=== PATIENT | female | born 1990 | race Caucasian/White ===

== ENCOUNTER 2022-04-13 23:10 | Inpatient (IN) | payer MEDICAID, OTHER ==
[~2022-04-13] VITALS: Ht 154.9 cm; Wt 83.6 kg
[~2022-04-13 23:10] MED LIST: FOLI1TAB15 PO; LEVE750T4 PO
[2022-04-13] MEDS ORDERED: DIVA125T2 PO (23:51)
[2022-04-13] MEDS ORDERED: ESCI-8 PO (23:51)
[2022-04-14 00:09] LABS: BASOPHILS % (AUTO) 0.3 % (0.0-2.0); EOSINOPHILS % (AUTO) 1.3 % (1.0-6.0); HEMATOCRIT 40.1 % (36-46); HEMOGLOBIN 13.5 g/dL (12.0-16.0); LYMPHOCYTES # (AUTO) 1.5 K/uL (1.0-4.8); LYMPHOCYTES % (AUTO) 11.5 % (22.0-44.0); MEAN CORPUSCULAR HEMOGLOBIN 29.8 pg (26.0-34.0); MEAN CORPUSCULAR HGB CONC 33.6 G/dL (31.0-37.0); MEAN CORPUSCULAR VOLUME 89 fL (80-100); MONOCYTES # (AUTO) 0.6 K/uL (0.1-1.0); MONOCYTES % (AUTO) 4.8 % (2.0-9.0); NEUTROPHILS # (AUTO) 10.4 K/uL (1.8-7.7); NEUTROPHILS % (AUTO) 82.1 % (40.0-70.0); PLATELET COUNT (AUTO) 412 K/uL (150-450); RED BLOOD CELL COUNT(AUTO) 4.53 MIL/uL (4.00-5.20)
[2022-04-14 00:33] LABS: ANION GAP 11 mmol/L (8-16); CALCIUM, TOTAL 9.5 mg/dL (8.8-10.5); CARBON DIOXIDE 27 mmol/L (22-29); CHLORIDE 103 mmol/L (98-107); CREATININE 0.68 mg/dL (0.60-1.30); GLUCOSE,RANDOM 116 mg/dL (70-110); SODIUM SERUM 141 mmol/L (136-145); UREA NITROGEN, BLOOD 10 mg/dL (7-18)
[2022-04-14 00:35] LABS: GLOMERULAR FILTR. RATE CALC > 60 mL/min (>60)
[2022-04-14 00:39] LABS: AMPHET/METH SCREEN,URINE NEGATIVE (NEGATIVE); BARBITURATE SCREEN, URINE NEGATIVE (NEGATIVE); BENZODIAZEPINES SCREEN,URINE NEGATIVE (NEGATIVE); CANNABINOID SCREEN,URINE POSITIVE (NEGATIVE); COCAINE SCREEN,URINE NEGATIVE (NEGATIVE); METHADONE SCREEN, URINE NEGATIVE (NEGATIVE); OPIATE SCREEN,URINE NEGATIVE (NEGATIVE)
[2022-04-14 00:40] LABS: PHENCYCLIDINE SCREEN,URINE NEGATIVE (NEGATIVE)
[2022-04-14 00:40] LABS: ALANINE AMINOTRANSFERASE 55 U/L (12-78); ALBUMIN 3.7 g/dL (3.4-5.0); ALKALINE PHOSPHATASE 106 U/L (46-116); ASPARTATE AMINOTRANSFERASE 33 U/L (15-37); BILIRUBIN,TOTAL 0.2 mg/dL (0.1-1.0); TOTAL PROTEIN, SERUM 8.1 g/dL (6.4-8.2)
[2022-04-14 02:31] LABS: COVID AG,FIA SOURCE NASAL SWAB
[2022-04-14 02:42] LABS: VALPROIC ACID < 3 mcg/mL (50-100)
[2022-04-14] MEDS ORDERED: HALOPERIDOL 5 MG TABLET PO PRN (03:00)
[2022-04-14] MEDS ORDERED: LORazepam 2 MG TABLET PO PRN (03:00)
[2022-04-14] MEDS ORDERED: ZOLPIDEM TARTRATE 10 MG TABLET PO PRN (03:00)
[2022-04-14 04:14] VITALS: BP 125/67
[2022-04-14 04:22] VITALS: BP 125/67
[2022-04-14] MEDS ORDERED: ALBUTEROL SULFATE HFA 90 MCG/PUFF 8 GM INHALER IH PRN (06:15)
[2022-04-14] MEDS ORDERED: CloNIDine HCL 0.1 MG TABLET PO PRN (06:15)
[2022-04-14] MEDS ORDERED: LOPERAMIDE HCL 2 MG CAPSULE PO PRN (06:15)
[2022-04-14] MEDS ORDERED: MAGNESIUM HYDROXIDE SUSPENSION 30 ML UDCUP PO PRN (06:15)
[2022-04-14] MEDS ORDERED: ONDANSETRON HCL 4 MG TABLET PO PRN (06:15)
[2022-04-14] MEDS ORDERED: PETROLATUM,WHITE 28 GM JELLY TP PRN (06:15)
[2022-04-14] MEDS ORDERED: ACETAMINOPHEN 325 MG TABLET PO PRN (06:15)
[2022-04-14] MEDS ORDERED: NICOTINE 14 MG/24 HOUR PATCH TD PRN (06:15)
[2022-04-14] MEDS ORDERED: GuaiFENesin/D-METHORPHAN [SUGAR-FREE] 200-20MG/10 ML SYRUP UDCUP PO PRN (06:15)
[2022-04-14] MEDS ORDERED: DOCUSATE SODIUM 100 MG CAPSULE PO PRN (06:15)
[2022-04-14] MEDS ORDERED: MAG HYDROX/AL HYDROX/SIMETH ES 30 ML SUSPENSION UDCUP PO PRN (06:15)
[2022-04-14] MEDS: LevETIRAcetam 250 MG TABLET PO SCH ×2 (08:17→16:06)
[2022-04-14 10:15] VITALS: BP 112/65
[2022-04-14] MEDS: ESCITALOPRAM OXALATE 10 MG TABLET PO SCH (13:19)
[2022-04-14] MEDS: DIVALPROEX SODIUM 500 MG DR TABLET PO SCH (16:06)
[2022-04-14 16:21] VITALS: BP 109/63
[2022-04-14] MEDS: IBUPROFEN 400 MG TABLET PO PRN (20:59)
[2022-04-15] MEDS: ESCITALOPRAM OXALATE 10 MG TABLET PO SCH (08:38)
[2022-04-15] MEDS: LevETIRAcetam 250 MG TABLET PO SCH ×2 (08:38→17:06)
[2022-04-15] MEDS: DIVALPROEX SODIUM 500 MG DR TABLET PO SCH ×2 (08:38→17:00)
[2022-04-15 08:39] VITALS: BP 113/58
[2022-04-15] MEDS: IBUPROFEN 400 MG TABLET PO PRN ×2 (08:39→19:30)
[2022-04-15 09:39] VITALS: BP 108/64
[2022-04-15 16:00] VITALS: BP 131/79
[2022-04-15 19:30] VITALS: BP 129/81
[2022-04-16 00:01] VITALS: BP 110/59
[2022-04-16 08:22] VITALS: BP 131/78
[2022-04-16] MEDS: IBUPROFEN 400 MG TABLET PO PRN (08:22)
[2022-04-16 08:51] VITALS: BP 131/78
[2022-04-16] MEDS: ESCITALOPRAM OXALATE 10 MG TABLET PO SCH (09:09)
[2022-04-16] MEDS: LevETIRAcetam 250 MG TABLET PO SCH (09:09)
[2022-04-16] MEDS: DIVALPROEX SODIUM 500 MG DR TABLET PO SCH (09:09)
[2022-04-16 09:22] VITALS: BP 126/74
[2022-04-16] MEDS ORDERED: DIVA-112 PO (11:56)
[2022-04-16] MEDS ORDERED: LEVE250T PO (11:56)
[2022-04-16] MEDS ORDERED: ESCI10 PO (11:56)
== END 2022-04-16 14:10 | disposition home or self-care (01) | DRG 751 ==
LOC: EMS 23:11 → 3EI 04-14 02:29
PROVIDERS: ADMIT Psychiatry & Neurology Child & Adolescent Psychiatry; ATTEND Psychiatry & Neurology Child & Adolescent Psychiatry
DX: F33.2 Major depressive disorder, recurrent severe without psychotic features (principal); G40.909 Epilepsy, unspecified, not intractable, without status epilepticus; R45.851 Suicidal ideations; D72.829 Elevated white blood cell count, unspecified; Z20.822 Contact with and (suspected) exposure to COVID-19; F41.1 Generalized anxiety disorder; E66.9 Obesity, unspecified; F10.10 Alcohol abuse, uncomplicated; Z71.41 Alcohol abuse counseling and surveillance of alcoholic; Z59.00 Homelessness unspecified; Z68.34 Body mass index [BMI] 34.0-34.9, adult
CPT/HCPCS: 80053; 80164; 85025; 87081; 99285; G0480

== ENCOUNTER 2022-12-13 11:28 | Inpatient (IN) | payer MEDICAID, OTHER ==
[~2022-12-13] VITALS: Ht 154.9 cm; Wt 81.1 kg
[~2022-12-13 11:28] MED LIST changes: +DIVA-112 PO; +ESCI10 PO; -FOLI1TAB15 PO; +LEVE250T PO; -LEVE750T4 PO
[2022-12-13 12:36] LABS: BASOPHILS % (AUTO) 0.2 % (0.0-2.0); EOSINOPHILS % (AUTO) 1.2 % (1.0-6.0); HEMATOCRIT 45.2 % (36-46); HEMOGLOBIN 15.1 g/dL (12.0-16.0); LYMPHOCYTES # (AUTO) 1.1 K/uL (1.0-4.8); LYMPHOCYTES % (AUTO) 7.9 % (22.0-44.0); MEAN CORPUSCULAR HEMOGLOBIN 30.1 pg (26.0-34.0); MEAN CORPUSCULAR HGB CONC 33.4 G/dL (31.0-37.0); MEAN CORPUSCULAR VOLUME 90 fL (80-100); MONOCYTES # (AUTO) 0.8 K/uL (0.1-1.0); MONOCYTES % (AUTO) 6.2 % (2.0-9.0); NEUTROPHILS # (AUTO) 11.3 K/uL (1.8-7.7); NEUTROPHILS % (AUTO) 84.5 % (40.0-70.0); PLATELET COUNT (AUTO) 330 K/uL (150-450); RED BLOOD CELL COUNT(AUTO) 5.01 MIL/uL (4.00-5.20)
[2022-12-13 12:44] LABS: ANION GAP 9 mmol/L (8-16); CALCIUM, TOTAL 9.2 mg/dL (8.8-10.5); CARBON DIOXIDE 26 mmol/L (22-29); CHLORIDE 104 mmol/L (98-107); CREATININE 0.73 mg/dL (0.60-1.30); GLOMERULAR FILTR. RATE CALC > 60 mL/min (>60); GLUCOSE,RANDOM 97 mg/dL (70-110); POTASSIUM 3.9 mmol/L (3.5-5.1); SODIUM SERUM 139 mmol/L (136-145); UREA NITROGEN, BLOOD 19 mg/dL (7-18)
[2022-12-13] MEDS ORDERED: LORazepam 2 MG/ML VIAL IM ONE (12:45)
[2022-12-13] MEDS ORDERED: DiphenhydrAMINE HCL 50 MG/ML VIAL IM ONE (12:45)
[2022-12-13] MEDS ORDERED: HALOPERIDOL LACTATE 5 MG/ML VIAL IM ONE (12:45)
[2022-12-13 12:50] LABS: ALANINE AMINOTRANSFERASE 67 U/L (12-78); ALBUMIN 4.1 g/dL (3.4-5.0); ALKALINE PHOSPHATASE 97 U/L (46-116); ASPARTATE AMINOTRANSFERASE 65 U/L (15-37); BILIRUBIN,TOTAL 0.3 mg/dL (0.1-1.0); TOTAL PROTEIN, SERUM 9.1 g/dL (6.4-8.2)
[2022-12-13] MEDS ORDERED: LORazepam 2 MG TABLET PO PRN (14:15)
[2022-12-13] MEDS ORDERED: ZOLPIDEM TARTRATE 10 MG TABLET PO PRN (14:15)
[2022-12-13] MEDS ORDERED: HALOPERIDOL 5 MG TABLET PO PRN (14:15)
[2022-12-13 14:42] LABS: COVID AG,FIA SOURCE NASAL SWAB
[2022-12-13 16:57] VITALS: BP 112/67
[2022-12-13] MEDS: LevETIRAcetam 250 MG TABLET PO SCH (18:00)
[2022-12-14] MEDS ORDERED: CloNIDine HCL 0.1 MG TABLET PO PRN (07:00)
[2022-12-14] MEDS ORDERED: MAG HYDROX/AL HYDROX/SIMETH ES 30 ML SUSPENSION UDCUP PO PRN (07:00)
[2022-12-14] MEDS ORDERED: DOCUSATE SODIUM 100 MG CAPSULE PO PRN (07:00)
[2022-12-14] MEDS ORDERED: OMEPRAZOLE 20 MG CAPSULE PO PRN (07:00)
[2022-12-14] MEDS ORDERED: PETROLATUM,WHITE 28 GM JELLY TP PRN (07:00)
[2022-12-14] MEDS ORDERED: BENZOCAINE/MENTHOL LOZENGE PO PRN (07:00)
[2022-12-14] MEDS ORDERED: ALBUTEROL SULFATE HFA 90 MCG/PUFF 8 GM INHALER IH PRN (07:00)
[2022-12-14] MEDS ORDERED: ACETAMINOPHEN 325 MG TABLET PO PRN (07:00)
[2022-12-14] MEDS ORDERED: BACITRACIN 28 GM OINTMENT TP PRN (07:00)
[2022-12-14] MEDS ORDERED: MAGNESIUM HYDROXIDE SUSPENSION 30 ML UDCUP PO PRN (07:00)
[2022-12-14] MEDS ORDERED: LOPERAMIDE HCL 2 MG CAPSULE PO PRN (07:00)
[2022-12-14] MEDS ORDERED: ONDANSETRON HCL 4 MG TABLET PO PRN (07:00)
[2022-12-14] MEDS ORDERED: IBUPROFEN 600 MG TABLET PO PRN (07:00)
[2022-12-14 08:12] VITALS: BP 98/60
[2022-12-14] MEDS: LevETIRAcetam 250 MG TABLET PO SCH ×2 (09:38→16:52)
[2022-12-14] MEDS: DIVALPROEX SODIUM 500 MG DR TABLET PO SCH (16:53)
[2022-12-14 17:56] VITALS: BP 113/70
[2022-12-14 20:07] VITALS: BP 125/60
[2022-12-15] MEDS: LevETIRAcetam 250 MG TABLET PO SCH ×2 (07:35→16:13)
[2022-12-15] MEDS: DIVALPROEX SODIUM 500 MG DR TABLET PO SCH ×2 (07:35→16:13)
[2022-12-15] MEDS: ESCITALOPRAM OXALATE 10 MG TABLET PO SCH (07:35)
[2022-12-15 07:37] VITALS: BP 108/64
[2022-12-15 08:14] VITALS: BP 108/64
[2022-12-15 08:37] VITALS: BP 111/69
[2022-12-15 16:17] VITALS: BP 106/63
[2022-12-15 20:21] VITALS: BP 115/66
[2022-12-16] MEDS: ESCITALOPRAM OXALATE 10 MG TABLET PO SCH (08:23)
[2022-12-16] MEDS: DIVALPROEX SODIUM 500 MG DR TABLET PO SCH (08:23)
[2022-12-16] MEDS: LevETIRAcetam 250 MG TABLET PO SCH (08:23)
[2022-12-16 09:14] VITALS: BP 100/61
[2022-12-16 09:15] VITALS: BP 100/61
[2022-12-16] MEDS ORDERED: LEVE250T4 PO ×2 (12:06→12:07)
[2022-12-16] MEDS ORDERED: DIVA-112 PO (13:05)
[2022-12-16] MEDS ORDERED: ESCI10 PO (13:05)
== END 2022-12-16 13:15 | disposition home or self-care (01) | DRG 753 ==
LOC: EMS 11:53 → 3EC 16:11
PROVIDERS: ADMIT Psychiatry & Neurology Psychiatry; ATTEND Psychiatry & Neurology Psychiatry
DX: F31.9 Bipolar disorder, unspecified (principal); F22 Delusional disorders; D72.829 Elevated white blood cell count, unspecified; Z20.822 Contact with and (suspected) exposure to COVID-19; E66.9 Obesity, unspecified; F41.9 Anxiety disorder, unspecified; G40.909 Epilepsy, unspecified, not intractable, without status epilepticus; G47.00 Insomnia, unspecified; K59.00 Constipation, unspecified; Z91.14 Patient's other noncompliance with medication regimen; Z91.199 Patient's noncompliance with other medical treatment and regimen due to unspecified reason; Z68.33 Body mass index [BMI] 33.0-33.9, adult; Z79.899 Other long term (current) drug therapy
CPT/HCPCS: 80053; 80164; 84703; 85025; 99285; G0480